=== PATIENT | female | born 1950 | race Caucasian/White ===

== ENCOUNTER 2023-09-18 00:26 | Day surgery (SDC) | payer MEDICARE, SELFPAY ==
[2023-09-07 11:52] VITALS: BMI 30.6
[2023-09-18 06:16] VITALS: BP 128/67; PULSE 100; RESP 18; TEMP 36.1; O2SAT 97
[2023-09-18] MEDS: LACTATED RINGERS 1,000 ML 150 ML IV CONT (06:26)
--- NOTE | 2023-09-18 07:15 | PM.HPGS ---
History of Present Illness History of Present Illness Consent: Risks, benefits, and alternatives have been discussed and questions answered. Patient agrees to proceed with procedure. Chief complaint: FA HX colon polyps Narrative: Tameka Yuan is a 73 year old female Presents for screening colonoscopy. Patient states that her current weight appetite and bowel movements are normal. Patient denies abdominal pain. She has had no bleeding. Family history significant her mother had surgery. She states her mother did not have colon cancer. Patient herself did have a tubulovillous adenoma removed by colonoscopy 2016. And she does report someone in the family had colon polyps. Patient presents today for surveillance screening colonoscopy. Review of Systems Review of Systems: Review of systems noncontributory. FORMERLY [facility] Social History Social History (System 04/21/20 @ 15:42 by Yessica Chang) Smoking packs per day: 0.75 Smoking cigarettes per day: 15.0 Years smoked: 45 Smoking pack-years: 33.75 Smoking status: Current every day smoker Tobacco type: cigarettes Alcohol intake: current Alcohol use details: rarely Substance use type: does not use Living arrangements: with family Spiritual care concerns: No Meds Home Medications and Allergies Home Medications Medication Instructions Recorded Confirmed Type venlafaxine 75 mg capsule,extended 75 mg PO DAILY 09/07/23 09/07/23 History release 24 hr Allergies Allergy/AdvReac Type Severity Reaction Status Date / Time Penicillins Allergy Intermediate RASH, FEVER Verified 09/18/23 06:15 Vital Signs Vital Signs - 24 hr 09/18/23 06:16 Temperature 96.9 F L Pulse Rate 100 Respiratory Rate 18 Blood Pressure 128/67 Pulse Oximetry 97 Oxygen Delivery Room Air Exam Narrative: Physical exam reveals patient to be alert. Vital signs stable. HEENT exam is unremarkable. Patient is anicteric. Lungs are clear to auscultation and percussion. Heart is without murmur or extra sounds. Abdomen bowel sounds are present soft nontender with no organomegaly. Digital external rectal exam is normal. Assessment and Plan Assessment and plan (1) History of colon polyps: Code(s): Z86.010 - Personal history of colonic polyps Status: Acute Assessment and Plan: Patient has a history of a tubulovillous adenoma removed from the colon in 2016 at time of colonoscopy by Dr. Avalos. Patient reports current weight appetite bowel movements are normal. Plan for surveillance colonoscopy now and consider this a 5 year intervals.
--- NOTE | 2023-09-18 07:29 | WPDANESEPPF ---
Anes - Initial Pre Proc Eval Procedure: Operation Date: 09/18/23 07:30 Proposed Procedures p Colonoscopy - Colton Alfaro MD Date/Time: 09/18/23 07:29 Surgeon: Colton Alfaro MD Pre Op Diagnosis: FA HX colon polyps Patient Data Age: 73 Gender: F Height: 1.63 m Weight: 80.2 kg Last Vital Signs Temp 96.9 F L 09/18/23 06:16 Pulse 100 09/18/23 06:16 Resp 18 09/18/23 06:16 BP 128/67 09/18/23 06:16 Pulse Ox 97 09/18/23 06:16 O2 Del Method Room Air 09/18/23 06:16 Allergies Allergy/AdvReac Type Severity Reaction Status Date / Time Penicillins Allergy Intermediate RASH, FEVER Verified 09/18/23 06:15 Home Medications Medication Instructions Recorded Confirmed Type venlafaxine 75 mg capsule,extended 75 mg PO DAILY 09/07/23 09/07/23 History release 24 hr Patient hx anesthesia problems: none Family hx anesthesia problems: none Results Review: All pre-operative results and documents have been reviewed as part of the pre-operative evaluation. FORMERLY [facility], [facility] Social History Social History (System 04/21/20 @ 15:42 by Yessica Chang) Smoking packs per day: 0.75 Smoking cigarettes per day: 15.0 Years smoked: 45 Smoking pack-years: 33.75 Smoking status: Current every day smoker Tobacco type: cigarettes Alcohol intake: current Alcohol use details: rarely Substance use type: does not use Living arrangements: with family Spiritual care concerns: No Anes - Eval Final PreProcedure Day of Procedure 09/18/23 07:29 Patient weight: normal Heart: regular rate and rhythm Lungs: clear to auscultation Airway: Mallampati scale class II Neurological: alert and oriented Last oral intake: >/= 8 hours ASA classification: III Emergent: no Anesthetic plan: proceed Anesthesia type and monitoring: general GIVS and standard monitoring Results Review: All pre-operative results and documents have been reviewed as part of the pre-operative evaluation. Informed Consent: The patient's anesthetic plan and its attendant risks and benefits were discussed with the patient/family/POA. Questions were solicited and answers provided to the satisfaction of the patient/family/POA.
--- NOTE | 2023-09-18 07:51 | SUR.OPER ---
DR PEÑA NOTIFIED SIGMOID COLON POLYP NOT RETRIEVED. Ashish DAVID, RN & Abisai PRABHAKAR RN
[2023-09-18 07:52] VITALS: BP 151/85; PULSE 69; RESP 21; O2SAT 97
[2023-09-18 08:02] VITALS: BP 146/77; PULSE 69; RESP 20; O2SAT 97
[2023-09-18 08:12] VITALS: BP 130/65; PULSE 65; RESP 25; O2SAT 100
== END 2023-09-18 08:20 | disposition home or self-care (01) ==
PROVIDERS: PCP Family Medicine Sports Medicine; Visit Provider Internal Medicine Gastroenterology
PROC: 0DJD8ZZ Inspection of Lower Intestinal Tract, Via Natural or Artificial Opening Endoscopic (ICD-10-PCS; CPT 45378; principal; 2023-09-18 07:30)
DX: Z12.11 Encounter for screening for malignant neoplasm of colon (principal); K62.1 Rectal polyp; K63.5 Polyp of colon; K64.8 Other hemorrhoids; K57.30 Diverticulosis of large intestine without perforation or abscess without bleeding; F17.210 Nicotine dependence, cigarettes, uncomplicated
CPT/HCPCS: 45385; 88305; J2704; J7120

== ENCOUNTER → 2023-09-28 12:34 | Outpatient (CLI) | payer MEDICARE, SELFPAY ==
--- NOTE | ~2023-09-28 | MM_ITS ---
EXAMINATION: MM screening jamarcus BI w dennis HISTORY: Screening mammogram, family history of breast cancer in her sister. TECHNIQUE: Craniocaudal and mediolateral oblique 3-D tomosynthesis images were obtained and synthetic 2-D images were generated. CAD analysis was submitted and interpreted. COMPARISON: 11/09/2018, 11/07/2017, 10/14/2016 BREAST PARENCHYMAL COMPOSITION: The breasts are almost entirely fatty. FINDINGS: No suspicious mass, calcification, or architectural distortion are identified in either annelise ast to suggest malignancy. There has been no suspicious interval change. IMPRESSION: 1. No mammographic evidence of malignancy. 2. Recommend routine screening mammography in one year. BI-RADS Category 1: Negative Reviewed, dictated and finalized at location A.
== END ==
PROVIDERS: PCP Nurse Practitioner; Visit Provider Nurse Practitioner
DX: Z12.31 Encounter for screening mammogram for malignant neoplasm of breast (principal)
CPT/HCPCS: 77063; 77067

== ENCOUNTER 2024-03-04 08:49 | Outpatient (CLI) | payer MEDICARE, SELFPAY ==
--- NOTE | ~2024-03-04 | DEXA_ITS ---
Bone Density Report Name: SANTOS BURRIS Age: 73 Sex: Female Ethnicity: White Date of : 1950 Indication: postmenopausal; screening for osteoporosis; Referring Provider: Ana, Rosario Study: Bone densitometry was performed. Exam Date: March 04, 2024 Accession number: [id number] Bone Density: Region BMD T-score Z-score Classification AP Spine (L1-L4) 0.954 -0.8 1.4 Normal Femoral Neck (Left) 0.698 -1.4 0.5 Osteopenia Total Hip (Left) 0.905 -0.3 1.3 Normal Femoral Neck (Right) 0.666 -1.7 0.2 Osteopenia Total Hip (Right) 0.916 -0.2 1.4 Normal Total Hip Mean 0.911 -0.3 1.4 Normal World Health Organization criteria for BMD impression classify patients as: Normal (T-score at or above -1.0), Osteopenia (T-score between -1.0 and -2.5), or Osteoporosis (T-score at or below -2.5). 10-year Fracture Risk(1): Major Osteoporotic Fracture 11% Hip Fracture 2.9% Reported Risk Factors: [place] (), Neck BMD=0.666, BMI=30.1, smoking (1) FRAX(R) Version 3.08. Fracture probability calculated for an untreated patient. Fracture probability may be lower if the patient has received treatment. Previous Exams: Region Exam Age BMD T-score BMD Change BMD Change Date g/cm2 vs Baseline vs Previous AP Spine(L1-L4) 03/04/2024 73 0.954 -0.8 -0.071* 0.000 11/09/2018 68 0.954 -0.8 -0.072* 0.011 10/14/2016 66 0.943 -0.9 -0.083* -0.083* 06/26/2008 57 1.026 -0.2 Total Hip(Left) 03/04/2024 73 0.905 -0.3 -0.055* -0.036* 11/09/2018 68 0.941 0.0 -0.019 0.001 10/14/2016 66 0.940 0.0 -0.020 -0.020 06/26/2008 57 0.960 0.1 Total Hip(Right) 03/04/2024 73 0.916 -0.2 -0.041* -0.019 11/09/2018 68 0.935 -0.1 -0.021 -0.040* 10/14/2016 66 0.975 0.3 0.019 0.019 06/26/2008 57 0.956 0.1 *Denotes significance at 95% confidence level, LSC for AP Spine = 0.022 g/cm2, LSC for Total Hip = 0.027 g/cm2 Clinical Information Provided by Patient: Smokes Patient maximum height was 64.5 Menopause Age: 57 No regular weight bearing exercise Does not regularly consume dairy products Drinks caffeinated beverages Onset of menses at age 14 Number of children 3 Impression: The patient has low bone mass, based on the Right Femoral Neck T-score. The pa
== END 2024-03-04 08:50 ==
PROVIDERS: PCP Family Medicine Sports Medicine; Visit Provider Nurse Practitioner
DX: Z78.0 Asymptomatic menopausal state (principal); M85.89 Other specified disorders of bone density and structure, multiple sites
CPT/HCPCS: 77080